=== PATIENT | male | born 1965 | race Caucasian/White ===

== ENCOUNTER 2017-09-07 22:35 | Inpatient (IN) | END 2017-09-15 15:53 | disposition home or self-care (01) | DRG 291 ==

== ENCOUNTER 2017-10-16 22:54 | Observation (INO) | END 2017-10-18 11:38 | disposition home or self-care (01) ==

== ENCOUNTER 2018-06-07 14:09 | Emergency (ER) | payer SELFPAY ==
[~2018-06-07] VITALS: Ht 167.6 cm; Wt 89.2 kg
[~2018-06-07 14:09] MED LIST: BUME1TAB PO; LISI-313 PO; RIVA20TA5 PO
[2018-06-07 14:15] VITALS: BP 179/110; PULSE 92; RESP 20; Ht 167.6 cm; Wt 89.2 kg
== END 2018-06-07 19:50 | disposition left against medical advice (07) ==
LOC: E/R 14:09
DX: Z53.21 Procedure and treatment not carried out due to patient leaving prior to being seen by health care provider (principal)